=== PATIENT | male | born 1950 | race Asian ===

== ENCOUNTER 2018-12-25 08:01 | Day surgery (SDC) | payer BC, OTHER ==
[~2018-12-25] VITALS: Ht 170.2 cm; Wt 93.0 kg
[2018-12-25 08:47] VITALS: Ht 170.2 cm; Wt 93.0 kg
[2018-12-25] MEDS ORDERED: LOSARTAN (08:51)
[2018-12-25] MEDS ORDERED: SIMVASTATIN (08:51)
[2018-12-25] MEDS ORDERED: HCTZ (08:51)
[2018-12-25] MEDS ORDERED: ASA 81 (08:51)
[2018-12-25] MEDS ORDERED: JANUVIA (08:51)
[2018-12-25] MEDS ORDERED: AMLODIPINE (08:51)
--- NOTE | 2018-12-25 10:25 | PREAC ---
Date/Time of Note Date/Time of Note DATE: 12/25/18 TIME: 10:23 Anesthesia Eval and Record Evaluation Time Pre-Procedure Interview DATE: 12/25/18 TIME: 10:23 Age 68 Sex male NPO: 8 hrs Preoperative diagnosis colon cancer screening Planned procedure Colonoscopy Past Medical History Past Medical History: Includes Cardio: HTN, Dyslipidemia Endo: Diabetes, Other (obesity) Surgery & Anesthesia Issues No known issue Meds Anticoagulation: No Beta Monica within 24 hr: No Reason Beta Monica not given: Pt. not on B-Monica Reported Medications [Simvastatin] No Conflict Check 12/25/18 [Januvia] No Conflict Check 12/25/18 [Hctz] No Conflict Check 12/25/18 [Amlodipine] No Conflict Check 12/25/18 [Losartan] No Conflict Check 12/25/18 [Asa 81] No Conflict Check 12/25/18 Meds reviewed: Yes Allergies Coded Allergies: No Known Allergy (Unverified , 12/25/18) Allergies Reviewed: Yes Labs/Studies Labs Reviewed: Reviewed by anesthesiologist test: N/A Pre-procedure Exam Airway: Adequate mouth opening Mallampati: Mallampati II Teeth: Normal Lung: Normal Heart: Normal ASA Physical Status ASA physical status: 3 Emergency: None Planned Anesthetic General/MAC: MAC Pre-operative Attestations Prior to commencing anesthesia and surgery, the patient was re-evaluated, there was verification of: *The patient's identity *The results of appropriate recent lab work and preoperative vital signs *The above evaluation not changing prior to induction *Anesthetic plan, risk benefits, alternative and complications discussed with patient/family; questions answered; patient/family understands, accepts and wishes to proceed. SONU DUVALL MD December 25, 2018 10:24
[2018-12-25] MEDS ORDERED: ONDANSETRON 4 MG INJ IV PRN (10:30)
[2018-12-25] MEDS ORDERED: morphine (1 MG/ML) 10ML SYRINGE IV PRN (10:30)
[2018-12-25 10:31] VITALS: BP 134/83; PULSE 97; RESP 18
[2018-12-25] MEDS ORDERED: LIDOCAINE 2% (SDV) 5 ML INJ ONE (10:31)
[2018-12-25] MEDS ORDERED: PROPOFOL 40 ML ONE (10:31)
[2018-12-25 11:24] VITALS: BP 114/61; PULSE 76; RESP 16
--- NOTE | 2018-12-25 13:39 | PAC ---
Date/Time of Note Date/Time of Note DATE: 12/25/18 TIME: 13:39 Post-Anesthesia Notes Post-Anesthesia Note Last documented vital signs Vital Signs Date Temp Pulse Resp B/P (MAP) Pulse Ox O2 O2 Flow FiO2 Time Delivery Rate 12/25/18 76 16 114/61 95 Room Air 11:24 (78) 12/25/18 97.2 10:31 Activity: WNL Respiratory function: WNL Cardiovascular function: WNL Mental status: Baseline Pain reasonably controlled: Yes Hydration appropriate: Yes Nausea/Vomiting absent: Yes SONU DUVALL MD December 25, 2018 13:39
== END 2018-12-25 12:53 | disposition home or self-care (01) ==
LOC: GIL 08:01
PROVIDERS: ATTEND Internal Medicine Gastroenterology
DX: Z12.11 Encounter for screening for malignant neoplasm of colon (principal); D12.3 Benign neoplasm of transverse colon; K64.8 Other hemorrhoids; K57.30 Diverticulosis of large intestine without perforation or abscess without bleeding; I10 Essential (primary) hypertension; E78.5 Hyperlipidemia, unspecified
CPT/HCPCS: 45380; 82962; 88305; Z7610